=== PATIENT | male | born 1965 | race Caucasian/White ===

== ENCOUNTER 2018-09-15 15:52 | Emergency (ER) | payer SELFPAY ==
[~2018-09-15] VITALS: Ht 170.2 cm; Wt 68.0 kg
[2018-09-15 15:56] VITALS: BP 113/77
[2018-09-15] MEDS ORDERED: CEPHALEXIN 250MG CAPSULE PO ONE (17:00)
== END 2018-09-15 17:30 | disposition left against medical advice (07) ==
LOC: ER 15:52
DX: S01.01XA Laceration without foreign body of scalp, initial encounter (principal); S00.83XA Contusion of other part of head, initial encounter; F10.129 Alcohol abuse with intoxication, unspecified; Y90.9 Presence of alcohol in blood, level not specified; K21.9 Gastro-esophageal reflux disease without esophagitis; K76.9 Liver disease, unspecified; Y04.0XXA Assault by unarmed brawl or fight, initial encounter; Y93.89 Activity, other specified; Y92.488 Other paved roadways as the place of occurrence of the external cause
CPT/HCPCS: 99283

== ENCOUNTER 2020-02-13 14:56 | Emergency (ER) | payer SELFPAY ==
[~2020-02-13] VITALS: Ht 167.6 cm; Wt 63.0 kg
[2020-02-13] MEDS ORDERED: FLUORESCEIN SODIUM 1MG/STRIP RIGHTEYE ONE (16:45)
[2020-02-13] MEDS ORDERED: TETRACAINE 0.5% OPHTH DROPS 4ML RIGHTEYE ONE (16:45)
[2020-02-13 22:55] VITALS: BP 146/77
== END 2020-02-13 23:39 | disposition short-term general hospital (02) ==
LOC: ER 14:56
DX: H54.61 Unqualified visual loss, right eye, normal vision left eye (principal); K21.9 Gastro-esophageal reflux disease without esophagitis; K76.9 Liver disease, unspecified; F10.21 Alcohol dependence, in remission; Z87.828 Personal history of other (healed) physical injury and trauma; Z98.890 Other specified postprocedural states
CPT/HCPCS: 99285

== ENCOUNTER 2020-09-30 16:47 | Emergency (ER) | payer MEDICAID ==
[~2020-09-30] VITALS: Ht 160 cm; Wt 61.0 kg
[2020-09-30] MEDS ORDERED: ACETAMINOPHEN 325MG TABLET PO ONE (17:15)
[2020-09-30] MEDS ORDERED: MORPHINE SULFATE 4 MG/ML CPJ (NOT FOR IM USE) IV ONE (17:45)
[2020-09-30 18:12] LABS: BASOPHILS % 0.9 % (0.0-2.0); EOSINOPHILS % 10.1 % (0.0-5.0); HEMOGLOBIN. 11.1 g/dL (14.0-18.0); LYMPHOCYTES % 21.3 % (20.0-50.0); MEAN CORPUSCULAR HEMOGLOBIN 25.8 pg (28.0-32.0); MEAN CORPUSCULAR VOLUME 80.9 fL (80.0-94.0); MEAN PLATELET VOLUME 8.3 fl (7.4-10.4); NEUTROPHILS % 54.7 % (40.0-76.0); PLATELET 310 x1000/uL (130-400); RED BLOOD CELL COUNT 4.32 mill/uL (4.7-6.1); RED CELL DISTRIBUTION WIDTH 19.8 % (11.6-14.6)
[2020-09-30 18:18] LABS: CHLORIDE 103 mEq/L (98-107)
[2020-09-30] MEDS ORDERED: LIDOCAINE HCL 1% 20ML VIAL (Pyxis) INJ INFIL ONE (19:15)
[2020-10-01] MEDS ORDERED: ONDANSETRON HCL 4MG/2ML INJ IV STA (00:15)
[2020-10-01] MEDS ORDERED: MORPHINE SULFATE 4 MG/ML CPJ (NOT FOR IM USE) IV STA (00:15)
[2020-10-01 01:43] VITALS: BP 142/82
== END 2020-10-01 02:04 ==
LOC: ER 16:47 → CANBEDREQ 10-01 22:32
DX: S27.0XXA Traumatic pneumothorax, initial encounter (principal); S22.42XA Multiple fractures of ribs, left side, initial encounter for closed fracture; K21.9 Gastro-esophageal reflux disease without esophagitis; F10.21 Alcohol dependence, in remission; W10.8XXA Fall (on) (from) other stairs and steps, initial encounter; Y93.89 Activity, other specified; Y92.018 Other place in single-family (private) house as the place of occurrence of the external cause
CPT/HCPCS: 36415; 70450; 71046; 71250; 80053; 84484; 85025; 96374; 96375; 96376; 99285; J2270; J2405; J3490